=== PATIENT | male | born 2000 | race Caucasian/White ===

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

== ENCOUNTER 2023-03-17 01:34 | Emergency (ER) | payer BC, MEDICAID, OTHER ==
[~2023-03-17] VITALS: Ht 185.4 cm; Wt 104.3 kg
[2023-03-17] MEDS ORDERED: AMOX/CLAVULANATE 875 MG TABLET PO ONE (02:30)
[2023-03-17] MEDS ORDERED: AMOX-430 PO (02:50)
[2023-03-17] MEDS ORDERED: BACITRACIN ZINC OINT PACKET 1 EA PACKET TP ONE (03:00)
[2023-03-17 03:03] VITALS: BP 116/67; TEMP 98.1; O2SAT 99
== END 2023-03-17 03:20 | disposition home or self-care (01) ==
LOC: ER 01:41
DX: S50.811A Abrasion of right forearm, initial encounter (principal); S61.451A Open bite of right hand, initial encounter; W54.0XXA Bitten by dog, initial encounter; Y93.89 Activity, other specified; Y92.89 Other specified places as the place of occurrence of the external cause; Y99.8 Other external cause status
CPT/HCPCS: 73130-TC